=== PATIENT | female | born 1970 | race Caucasian/White ===

== ENCOUNTER → 2018-09-07 | Outpatient (CLI) | payer MEDICARE, OTHER ==
[~2018-09-07] MED LIST: LAVAP17G PO
[2018-09-07 13:17] LABS: Appearance, Urine Hazy (Clear); Bilirubin, Urine Neg (Neg); Blood, Urine Neg (Neg); Color, Urine Yellow (P-Yellow); Glucose Qualitative, Urine Neg (Neg); Ketones, Urine Neg (Neg); Leukocyte Esterase, Urine 2+ (Neg); Nitrite, Urine Pos (Neg); Protein, Urine Neg (Neg); Specific Gravity, Urine 1.025 (1.003-1.022); Urobilinogen, Urine NORM (Normal)
[2018-09-07 13:29] LABS: Red Blood Cells, Urine Not Seen /hpf (0-2)
[2018-09-07 13:30] LABS: Bacteria Many /hpf; Calcium Oxalate Crystals Few /hpf; Squamous Epithelial Cells Rare /hpf (Few)
== END | disposition home or self-care (01) ==
LOC: LAB SHORT 12:51 → LAB 12:51
PROVIDERS: Nurse Practitioner Family
DX: R41.0 Disorientation, unspecified (principal)
CPT/HCPCS: 81001; 87077; 87086; 87186

== ENCOUNTER → 2022-09-04 | Outpatient (CLI) | payer MEDICARE, OTHER | END | disposition home or self-care (01) | LOC: LAB SHORT 10:05 | DX: L03.012 Cellulitis of left finger (principal) | CPT/HCPCS: 87070; 87075; 87077; 87147; 87186; 87205 ==

== ENCOUNTER → 2023-05-23 | Outpatient (CLI) | payer MEDICARE, OTHER ==
[2023-05-24 11:18] LABS: Candida species (DNA Probe) Negative (NEGATIVE); G. vaginalis (DNA Probe) Positive (NEGATIVE); T. vaginalis (DNA Probe) Negative (NEGATIVE)
[2023-05-25 04:11] LABS: CHLAMYDIA TRACHOMATIS, NAA Negative (Negative)
== END ==
LOC: LAB 15:34 → LAB SHORT 15:34
PROVIDERS: Advanced Practice Midwife
DX: Z11.3 Encounter for screening for infections with a predominantly sexual mode of transmission (principal); N76.0 Acute vaginitis
CPT/HCPCS: 87480; 87491; 87510; 87591; 87660

== ENCOUNTER 2025-06-18 10:43 | Observation (INO) | payer MEDICARE, OTHER ==
[~2025-06-18] VITALS: Ht 157.5 cm; Wt 72.6 kg
[~2025-06-18 10:43] MED LIST changes: +ACYC200 PO; +ALBU2.5V5 INH; +HYDHCL25 PO; +LIDO700A20 TOP
[2025-06-18 10:50] VITALS: BP 148/100
== END 2025-06-18 18:56 | disposition home or self-care (01) ==
LOC: ER 10:43 → EOR 10:44
PROVIDERS: ADMIT Emergency Medicine
DX: F30.9 Manic episode, unspecified (principal)
CPT/HCPCS: 99284; A9270; G0378